=== PATIENT | female | born 1965 | race Caucasian/White ===

== ENCOUNTER → 2018-10-20 13:26 | Outpatient (CLI) | payer BC ==
--- NOTE | ~2018-10-20 | EC ---
PATIENT:XAVIER RODAS DATE OF SERVICE: 10/20/18 SEX: F MEDICAL RECORD: [id number] DATE OF : 69 [facility] AGE OF PATIENT: 52 ADMISSION DATE: 10/20/18 REFERRING PHYSICIAN: INTERPRETING PHYSICIAN: GEORGINA BOATENG MD ECHOCARDIOGRAM REPORT ECHO CHARGES 4 ECHO COMPLETE Date: 10/20/18 CLINICAL DIAGNOSIS: CHEST PAIN ECHOCARDIOGRAPHIC MEASUREMENTS (adult normal given) AC root (d.<3.7cm) 2.5 cm LV Septum d (<1.2 cm> 0.9 cm Valve Excursion 1.2 cm LV Septum (systole) 1.1 cm Left Atria (s.<4.0cm> 2.8 cm LVPW d(<1.2cm) 1.1 cm RV (d.<2.3cm) 2.3 cm LVPW (sytole) 1.2 cm LV diastole(<5.6CM) 4.5 cm MV E-F(>70mm/sec) cm LV systole 3.1 cm LVOT Diameter 1.7 cm MV exc.(>10mm) 1.4 cm Est.ejection fraction (50-75%) % DOPPLER: LVIT cm/sec A 79.0 cm/sec E 59.0 cm/sec LA cm/sec RVSP 28 mmHg LVOT 111 cm/sec AOP1/2T m/s Asc. Ao 155 cm/sec RVOT 67 cm/sec RA cm/sec PA 117 cm/sec AV Gradient Peak 9.61 mmHg AV Mean 5.45 mmHg AV Area 1.6 cm MV Gradient Peak 3.10 mmHg MV Mean 1.49 mmHg MV Area cm COMMENTS: Mink Rancher: Xander MORGAN Handle Bender: 3 Dr. Billings TAPE# PACS Pericardial Effusion N DATE OF SERVICE: 10/20/2018 Adequate 2-D echo, color-flow and spectral Doppler, and M-mode. No LVH. LV internal dimensions are normal. Wall motion is normal. EF is 55%. Aortic valve is tricuspid. No evidence of stenosis by Doppler interrogation. Left atrium is normal. Mitral valve shows no prolapse. Trace MR. Right-sided chambers are grossly normal. Trace TR. TRANSINT:[id number] Voice Confirmation ID: [id number] DOCUMENT ID: [id number] ECHOCARDIOGRAM REPORT [id number] XAVIER RODAS GREGORY A MD CC: [id number] DICTATION DATE: 10/21/18 1311 VAMPER: 10/21/18 1339 [facility]P CLI 10/20/18 [id number] [place] [address]
--- NOTE | ~2018-10-20 | ST ---
PATIENT:XAVIER ROADS MEDICAL RECORD: [id number] SEX: F LOCATION:[facility] ORDER #: ADMISSION DATE: 10/20/18 AGE OF PATIENT: 52 REFERRING PHYSICIAN: INTERPRETING PHYSICIAN: GEORGINA BOATENG MD DATE OF SERVICE: 10/20/2018 PROCEDURE: Treadmill stress test. Baseline ECG is normal. Eight minutes on Don protocol, maximum heart rate was 168 beats per minute, greater than 85% max predicted. No ECG change for ischemia. No symptoms of ischemia. Normal blood pressure response to exercise. No arrhythmias noted. Good exercise tolerance for age. TRANSINT:[id number] Voice Confirmation ID: [id number] DOCUMENT ID: [id number] GEORGINA BOATENG MD CC: [id number] DICTATION DATE: 10/22/18 1337 CARPENTER REFRIGERATOR: 10/22/18 1431 [facility] CLI 10/20/18 [id number] [place] [address]
== END | disposition home or self-care (01) ==
LOC: D.HCCARDIO 13:26
PROVIDERS: ATTEND Internal Medicine Interventional Cardiology
DX: R07.9 Chest pain, unspecified (principal)